=== PATIENT | male | born 1975 | race Caucasian/White ===

== ENCOUNTER 2022-02-04 02:32 | Emergency (ER) | payer OTHER ==
[~2022-02-04 02:32] MED LIST: NORCO 5-325 TA1 EACH PO
[2022-02-04] MEDS ORDERED: ATARAX25 MG PO (03:27)
== END 2022-02-04 03:40 | disposition home or self-care (01) ==
LOC: FER 02:32
DX: Z43.0 Encounter for attention to tracheostomy (principal); I10 Essential (primary) hypertension; E03.9 Hypothyroidism, unspecified; F17.200 Nicotine dependence, unspecified, uncomplicated; Z28.311 Partially vaccinated for COVID-19; Z88.0 Allergy status to penicillin; Z79.899 Other long term (current) drug therapy; Z98.890 Other specified postprocedural states
CPT/HCPCS: 99283